=== PATIENT | male | born 1965 | race African-American/Black ===

== ENCOUNTER → 2017-09-08 | Day surgery (SDC) | payer OTHER ==
[~2017-09-08] VITALS: Ht 177.8 cm; Wt 80.7 kg
[~2017-09-08] MED LIST: ASPI1TAB PO; ATOR1TAB21 PO; LIDOCAINE 2% INJ 100 MG/5 ML SDV (FOR ANES.) As Ordered ONE; MULT1TAB10 PO; NS 1,000 ML IV ONE; PROPOFOL 200 MG/20 ML VIAL As Ordered ONE
--- NOTE | 2017-09-08 11:37 | ROOR ---
Patient Name: Michael Bustos Procedure Date: 09/08/2017 11:21 AM Date of : 1965 Age: 52 Room: [facility] Gender: Male Note Status: Finalized Procedure: Colonoscopy Indications: Screening for colorectal malignant neoplasm Providers: Bubba Song Jr, MD Referring MD: Jaycee Salgado DO Requesting Provider: Medicines: Propofol per Anesthesia Complications: No immediate complications. Procedure: Pre-Anesthesia Assessment: - Prior to the procedure, a History and Physical was performed, and patient medications and allergies were reviewed. The patient is competent. The risks and benefits of the procedure and the sedation options and risks were discussed with the patient. All questions were answered and informed consent was obtained. Patient identification and proposed procedure were verified by the physician and the nurse in the pre-procedure area and in the procedure room. Mental Status Examination: alert and oriented. Airway Examination: normal oropharyngeal airway and neck mobility. Respiratory Examination: clear to auscultation. CV Examination: normal. ASA Grade Assessment: II - A patient with mild systemic disease. After reviewing the risks and benefits, the patient was deemed in satisfactory condition to undergo the procedure. The anesthesia plan was to use moderate sedation / analgesia (conscious sedation). Immediately prior to administration of medications, the patient was re-assessed for adequacy to receive sedatives. The heart rate, respiratory rate, oxygen saturations, blood pressure, adequacy of pulmonary ventilation, and response to care were monitored throughout the procedure. The physical status of the patient was re-assessed after the procedure. The Colonoscope was introduced through the anus and advanced to the cecum, identified by appendiceal orifice and ileocecal valve. The colonoscopy was performed without difficulty. The patient tolerated the procedure well. The quality of the bowel preparation was adequate and good. Findings: The rectum, recto-sigmoid colon, sigmoid colon, descending colon, transverse colon, ascending colon, cecum, appendiceal orifice and ileocecal valve appeared normal. Impression: - The rectum, recto-sigmoid colon, sigmoid colon, descending colon, transverse colon, ascending colon, cecum, appendiceal orifice and ileocecal valve are normal. - No specimens collected. Recommendation: - Discharge patient to home (ambulatory). - Repeat colonoscopy in 10 years for screening purposes. Bubba Song MD Bubba Song Jr, MD 09/08/2017 11:36:51 AM This report has been signed electronically. Number of Addenda: 0 Note Initiated On: 09/08/2017 11:21 AM Estimated Blood Loss: Estimated blood loss: none.
[2017-09-08 12:02] VITALS: BP 129/74
== END | disposition home or self-care (01) ==
LOC: M OPP 09:57
PROVIDERS: ATTEND Surgery
DX: Z12.11 Encounter for screening for malignant neoplasm of colon (principal); E78.5 Hyperlipidemia, unspecified; E11.9 Type 2 diabetes mellitus without complications; F17.210 Nicotine dependence, cigarettes, uncomplicated; Z79.82 Long term (current) use of aspirin; Z79.899 Other long term (current) drug therapy

== ENCOUNTER → 2020-09-05 | Outpatient (CLI) | payer OTHER ==
[~2020-09-05] MED LIST changes: -ASPI1TAB PO; +ASPI81TA26 PO; -LIDOCAINE 2% INJ 100 MG/5 ML SDV (FOR ANES.) As Ordered ONE; -NS 1,000 ML IV ONE; -PROPOFOL 200 MG/20 ML VIAL As Ordered ONE
[2020-09-05 10:16] LABS: BASO % 0.5 % (0.0-1.0); EOS # 0.1 10^3/uL (0.0-0.5); EOS % 1.2 % (0.0-3.0); HEMATOCRIT 47.1 % (42.0-52.0); HEMOGLOBIN 14.3 g/dl (13.5-17.5); LYMPH # 1.6 10^3/uL (1.5-5.0); LYMPH % 27.4 % (24.0-44.0); MEAN CORPUSCULAR HEMOGLOBIN 25.1 pg (27.0-33.0); MEAN CORPUSCULAR HGB CONC 30.4 g/dl (32.0-36.5); MEAN CORPUSCULAR VOLUME 82.6 fl (80.0-96.0); MONO # 0.5 10^3/uL (0.0-0.8); MONO % 8.9 % (0.0-5.0); NEUTROPHILS # 3.5 10^3/uL (1.5-8.5); NEUTROPHILS % 61.8 % (36.0-66.0); PLATELET COUNT, AUTOMATED 232 10^3/uL (150-450); WHITE BLOOD COUNT 5.7 10^3/uL (4.0-10.0)
[2020-09-05 10:43] LABS: ALBUMIN 3.7 GM/DL (3.2-5.2); ALT/SGPT 37 U/L (12-78); BILIRUBIN,TOTAL 0.6 MG/DL (0.2-1.0); BLOOD UREA NITROGEN 15 MG/DL (7-18); CALCIUM LEVEL 8.5 MG/DL (8.5-10.1); CARBON DIOXIDE LEVEL 28 MEQ/L (21-32); CHLORIDE LEVEL 104 MEQ/L (98-107); CHOLESTEROL LEVEL 180 MG/DL (<200); CHOLESTEROL RISK RATIO 4.186 (<5); CREATININE FOR GFR 1.07 MG/DL (0.70-1.30); GLOMERULAR FILTRATION RATE > 60.0 (>56); GLUCOSE, FASTING 99 MG/DL (70-100); HDL CHOLESTEROL 43 MG/DL (>40); LDL CHOLESTEROL 122 MG/DL (<100); NON-HDL-C 137 MG/DL; POTASSIUM SERUM 4.2 MEQ/L (3.5-5.1); SODIUM LEVEL 139 MEQ/L (136-145); TOTAL PROTEIN 7.4 GM/DL (6.4-8.2); TRIGLYCERIDES LEVEL 74 MG/DL (<150)
== END ==
LOC: M LAB 09:28
PROVIDERS: ATTEND Family Medicine
DX: E78.49 Other hyperlipidemia (principal); Z87.891 Personal history of nicotine dependence; E11.9 Type 2 diabetes mellitus without complications

== ENCOUNTER 2020-12-04 12:46 | Emergency (ER) | payer OTHER ==
[~2020-12-04] VITALS: Ht 175.3 cm; Wt 85.0 kg
[2020-12-04 12:47] VITALS: BP 131/70
[2020-12-04] MEDS ORDERED: GABA-1171 (12:52)
[2020-12-04] MEDS ORDERED: NAPR-837 PO (13:49)
== END 2020-12-04 13:56 | disposition home or self-care (01) ==
LOC: M ED 12:46
DX: S46.001A Unspecified injury of muscle(s) and tendon(s) of the rotator cuff of right shoulder, initial encounter (principal); X50.0XXA Overexertion from strenuous movement or load, initial encounter; Y92.9 Unspecified place or not applicable; Y93.9 Activity, unspecified; Y99.0 Civilian activity done for income or pay; Z79.899 Other long term (current) drug therapy

== ENCOUNTER → 2020-12-11 | Outpatient (CLI) | payer OTHER ==
[~2020-12-11] MED LIST changes: +GABA-1171; +NAPR-837 PO
--- NOTE | 2020-12-11 16:55 | REP ---
INDICATION: RIGHT SHOULDER PAIN. COMPARISON: None. TECHNIQUE: Four views of the right shoulder are provided. FINDINGS: There is mild osteoarthritic spurring at the AC joint. Right glenohumeral articulation is normally aligned. Mild inferior articular spurring is seen at the glenoid consistent with osteoarthritis. No erosive changes seen. No fracture is seen. IMPRESSION: Glenohumeral and acromioclavicular joint osteoarthritic spurring. No acute abnormality. <Electronically signed by Randy Mera > 12/11/20 [id number]
== END ==
LOC: M SOG 15:00
PROVIDERS: ATTEND Orthopaedic Surgery Sports Medicine
DX: S43.431A Superior glenoid labrum lesion of right shoulder, initial encounter (principal)

== ENCOUNTER 2021-01-14 15:15 | Outpatient (RCR) | payer OTHER | END 2021-01-16 | LOC: M PT 15:15 | PROVIDERS: ATTEND Orthopaedic Surgery Sports Medicine | DX: S43.431D Superior glenoid labrum lesion of right shoulder, subsequent encounter (principal); X58.XXXD Exposure to other specified factors, subsequent encounter ==

== ENCOUNTER → 2021-01-28 | Outpatient (CLI) | payer OTHER ==
[~2021-01-28] MED LIST changes: +ISOVUE-300 61% 50ML VIAL As Ordered ONE; +PROHANCE 279.3MG/ML 5ML VIAL As Ordered ONE
--- NOTE | 2021-01-28 10:12 | REP ---
INDICATION: SUPERIOR GLENOID LABRUM LESION RIGHT SHOULDER. COMPARISON: Radiographs 12/11/2020. TECHNIQUE: Coronal oblique T1, T2 fat sat, sagittal oblique T2 fat sat, axial T2 fat sat, gradient echo. Post arthrogram T1 fat sat and T2 fat sat in multiple planes. FINDINGS: Rotator cuff: There are fairly extensive partial undersurface tears of the supraspinatus tendon with no definite full-thickness tear. There is a 7 mm cyst it within the distal posterior tendon. There is mild tendinopathy/tendinitis of the subscapularis tendon. Acromioclavicular joint: There are moderate hypertrophic degenerative changes of the acromioclavicular joint. Acromion: Type 2 Biceps Tendon: In bicipital groove, with mild surrounding fluid. Hill-Sachs deformity: None. Deltoid muscle: No abnormal signal. Biceps labral complex: The biceps labral complex is partially torn. Labrum: There is a diffuse complex SLAP tear. Cartilage: There is focal moderate chondromalacia of the inferior glenoid. Bone marrow: There is mild subchondral marrow edema in the inferior glenoid. There is mild subchondral marrow edema in the acromion. Joint fluid: There is a small joint effusion. IMPRESSION: Extensive partial undersurface tears of supraspinatus tendon with no definite full-thickness tear. There is a 7 mm cyst within the distal posterior tendon. Mild tendinopathy/tendinitis of the subscapularis tendon. Moderate hypertrophic degenerative changes acromioclavicular joint with a type 2 acromion. Partial tear biceps labral complex with a diffuse complex SLAP tear. Focal moderate chondromalacia inferior glenoid with subchondral marrow edema. <Electronically signed by Stone Venegas > 01/28/21 [id number]
--- NOTE | 2021-01-28 20:23 | REP ---
INDICATION: SUPERIOR GLENOID LABRUM LESION RIGHT SHOULDER COMPARISON: None. TECHNIQUE: The procedure was performed under the direct supervision of Dr. Venegas. The benefits and risks including but not limited to pain, infection, bleeding and anaphylaxis were explained to the patient and informed consent was obtained. The right glenohumeral joint space was localized using fluoroscopic guidance. The skin was prepped and draped in a sterile fashion. 1% lidocaine was used as a local anesthetic. Using fluoroscopic guidance a 22 gauge spinal needle was inserted and advanced into the joint. 0.5 ml of Isovue-300 was injected to verify placement. 11 ml of a solution containing 20 ml of sterile saline and 0.15 ml of ProHance was injected into the joint. The needle was removed and the patient was taken to MRI for postprocedural imaging. The patient tolerated the procedure well and there were no immediate complications. Less than 6 seconds of fluoro time was utilized for this procedure. FINDINGS: None IMPRESSION: Fluoro guidance for right shoulder MRI arthrogram <Electronically signed by Morgan Britton > 01/28/21 [id number] <Electronically signed by Stone Venegas > 01/28/[id number]
== END ==
LOC: M RADPRO 06:28
PROVIDERS: ATTEND Orthopaedic Surgery Sports Medicine
DX: S43.431A Superior glenoid labrum lesion of right shoulder, initial encounter (principal); X58.XXXA Exposure to other specified factors, initial encounter; Y92.89 Other specified places as the place of occurrence of the external cause; Y93.89 Activity, other specified; Y99.8 Other external cause status; M94.211 Chondromalacia, right shoulder; M19.011 Primary osteoarthritis, right shoulder
CPT/HCPCS: 23350; 73223; 77002; A9576; Q9967

== ENCOUNTER → 2021-02-11 | Outpatient (CLI) | payer OTHER ==
[~2021-02-11] MED LIST changes: -ISOVUE-300 61% 50ML VIAL As Ordered ONE; -PROHANCE 279.3MG/ML 5ML VIAL As Ordered ONE
[2021-02-11 15:53] LABS: BASO % 0.5 % (0.0-1.0); EOS % 0.3 % (0.0-3.0); HEMOGLOBIN 14.4 g/dl (13.5-17.5); LYMPH % 31.9 % (24.0-44.0); MEAN CORPUSCULAR HEMOGLOBIN 26.1 pg (27.0-33.0); MEAN CORPUSCULAR VOLUME 81.7 fl (80.0-96.0); MONO # 0.6 10^3/uL (0.0-0.8); MONO % 9.4 % (2.0-8.0); NEUTROPHILS # 3.6 10^3/uL (1.5-8.5); NEUTROPHILS % 57.7 % (36.0-66.0); PLATELET COUNT, AUTOMATED 217 10^3/uL (150-450); RED BLOOD COUNT 5.51 10^6/uL (4.30-6.10); WHITE BLOOD COUNT 6.3 10^3/uL (4.0-10.0)
[2021-02-11 16:19] LABS: BLOOD UREA NITROGEN 12 MG/DL (7-18); CALCIUM LEVEL 9.3 MG/DL (8.5-10.1); CARBON DIOXIDE LEVEL 29 MEQ/L (21-32); CHLORIDE LEVEL 106 MEQ/L (98-107); CREATININE FOR GFR 1.05 MG/DL (0.70-1.30); GLOMERULAR FILTRATION RATE > 60.0 (>56); GLUCOSE, FASTING 94 MG/DL (70-100); POTASSIUM SERUM 3.7 MEQ/L (3.5-5.1); SODIUM LEVEL 140 MEQ/L (136-145)
[2021-02-11 18:05] LABS: HEMOGLOBIN A1c 7.6 %
== END ==
LOC: M LAB 15:28
PROVIDERS: ATTEND Family Medicine
DX: E11.9 Type 2 diabetes mellitus without complications (principal)

== ENCOUNTER 2021-02-13 14:30 | Outpatient (RCR) | payer OTHER | END 2021-02-16 | LOC: M PT 14:30 | PROVIDERS: ATTEND Orthopaedic Surgery Sports Medicine | DX: S43.431A Superior glenoid labrum lesion of right shoulder, initial encounter (principal) ==

== ENCOUNTER → 2021-03-18 | Outpatient (RCR) | payer OTHER | LOC: M PT 02-27 15:15 | PROVIDERS: ATTEND Orthopaedic Surgery Sports Medicine | DX: S43.431A Superior glenoid labrum lesion of right shoulder, initial encounter (principal); X58.XXXA Exposure to other specified factors, initial encounter; Y92.9 Unspecified place or not applicable ==

== ENCOUNTER 2021-04-17 14:30 | Outpatient (RCR) | payer OTHER | END 2021-04-18 | LOC: M PT 14:30 | PROVIDERS: ATTEND Orthopaedic Surgery Sports Medicine | DX: S43.431A Superior glenoid labrum lesion of right shoulder, initial encounter (principal) ==

== ENCOUNTER 2021-06-15 07:58 | Outpatient (RCR) | payer OTHER | END 2021-06-18 | LOC: M PT 07:58 | PROVIDERS: ATTEND Orthopaedic Surgery Sports Medicine | DX: S43.431A Superior glenoid labrum lesion of right shoulder, initial encounter (principal) ==

== ENCOUNTER → 2021-07-22 | Outpatient (CLI) | payer OTHER | LOC: M LAB 11:42 | PROVIDERS: ATTEND Family Medicine | DX: E11.9 Type 2 diabetes mellitus without complications (principal) ==

== ENCOUNTER 2021-10-14 08:00 | Outpatient (RCR) | payer OTHER | END 2021-10-19 | LOC: M PT 08:00 | PROVIDERS: ATTEND Orthopaedic Surgery Sports Medicine | DX: S43.431D Superior glenoid labrum lesion of right shoulder, subsequent encounter (principal); X58.XXXD Exposure to other specified factors, subsequent encounter ==

== ENCOUNTER → 2021-11-10 | Outpatient (CLI) | payer OTHER ==
[2021-11-10 11:59] LABS: HEMOGLOBIN A1c 7.2 %
== END ==
LOC: M LAB 10:11
PROVIDERS: ATTEND Family Medicine
DX: E11.9 Type 2 diabetes mellitus without complications (principal)

== ENCOUNTER 2021-11-12 08:00 | Outpatient (RCR) | payer OTHER | END 2021-11-16 | LOC: M PT 08:00 | PROVIDERS: ATTEND Orthopaedic Surgery Sports Medicine | DX: S43.431D Superior glenoid labrum lesion of right shoulder, subsequent encounter (principal) ==

== ENCOUNTER → 2021-12-17 | Outpatient (RCR) | payer OTHER | LOC: M PT 11-17 08:10 | PROVIDERS: ATTEND Orthopaedic Surgery Sports Medicine | DX: S43.431D Superior glenoid labrum lesion of right shoulder, subsequent encounter (principal) ==

== ENCOUNTER → 2021-12-22 | Outpatient (CLI) | payer OTHER | LOC: M SOG 09:31 | PROVIDERS: ATTEND Orthopaedic Surgery | DX: S43.431A Superior glenoid labrum lesion of right shoulder, initial encounter (principal); W18.30XA Fall on same level, unspecified, initial encounter; Y92.009 Unspecified place in unspecified non-institutional (private) residence as the place of occurrence of the external cause ==

== ENCOUNTER 2021-12-24 21:37 | Emergency (ER) | payer OTHER ==
[~2021-12-24] VITALS: Ht 175.3 cm; Wt 89.2 kg
[2021-12-24 21:38] VITALS: BP 138/78
== END 2021-12-25 00:22 | disposition home or self-care (01) ==
LOC: M ED 21:37
DX: U07.1 COVID-19 (principal); E78.5 Hyperlipidemia, unspecified

== ENCOUNTER → 2022-01-07 | Outpatient (CLI) | payer OTHER | LOC: M SOG 09:41 | PROVIDERS: ATTEND Orthopaedic Surgery | DX: M25.512 Pain in left shoulder (principal) ==

== ENCOUNTER 2022-01-12 08:40 | Outpatient (RCR) | payer OTHER | END 2022-01-16 | LOC: M PT 08:40 | PROVIDERS: ATTEND Orthopaedic Surgery Sports Medicine | DX: S43.431D Superior glenoid labrum lesion of right shoulder, subsequent encounter (principal) ==

== ENCOUNTER 2022-01-21 08:44 | Outpatient (RCR) | payer OTHER | END 2022-02-16 | LOC: M PT 08:44 | PROVIDERS: ATTEND Orthopaedic Surgery Sports Medicine | DX: S43.431D Superior glenoid labrum lesion of right shoulder, subsequent encounter (principal) ==

== ENCOUNTER → 2022-06-25 | Outpatient (CLI) | payer OTHER ==
[2022-06-25 19:18] LABS: HEMOGLOBIN A1c 6.9 %
== END ==
LOC: M LAB 17:23
PROVIDERS: ATTEND Family Medicine
DX: E11.9 Type 2 diabetes mellitus without complications (principal)

== ENCOUNTER → 2023-03-31 | Outpatient (CLI) | payer OTHER ==
[2023-03-31 08:33] LABS: BASO % 0.3 % (0.0-1.0); EOS % 0.5 % (0.0-3.0); HEMATOCRIT 45.7 % (42.0-52.0); HEMOGLOBIN 14.4 g/dl (13.5-17.5); LYMPH # 1.5 10^3/uL (1.5-5.0); LYMPH % 24.6 % (24.0-44.0); MEAN CORPUSCULAR HEMOGLOBIN 26.7 pg (27.0-33.0); MEAN CORPUSCULAR HGB CONC 31.5 g/dl (32.0-36.5); MEAN CORPUSCULAR VOLUME 84.6 fl (80.0-96.0); MONO # 0.6 10^3/uL (0.0-0.8); MONO % 8.8 % (2.0-8.0); NEUTROPHILS # 4.1 10^3/uL (1.5-8.5); NEUTROPHILS % 65.6 % (36.0-66.0); PLATELET COUNT, AUTOMATED 200 10^3/uL (150-450); WHITE BLOOD COUNT 6.3 10^3/uL (4.0-10.0)
[2023-03-31 08:52] LABS: CREATININE, URINE 203.4 MG/DL; MALB URINE SIEMENS < 3.0 MG/L; MAU/CREAT RATIO 1.4 MCG/MG (0.0-30.0)
[2023-03-31 08:53] LABS: ALBUMIN 3.6 G/DL (3.2-5.2); ALKALINE PHOSPHATASE 69 U/L (46-116); ALT/SGPT 26 U/L (7.0-40); AST/SGOT 17 U/L (<34); BILIRUBIN,TOTAL 0.7 MG/DL (0.3-1.2); BLOOD UREA NITROGEN 15 MG/DL (9-23); CALCIUM LEVEL 8.8 MG/DL (8.5-10.1); CARBON DIOXIDE LEVEL 30 MMOL/L (20-31); CHLORIDE LEVEL 105 MMOL/L (98-107); CHOLESTEROL LEVEL 245 MG/DL (<200); CREATININE FOR GFR 0.93 MG/DL (0.70-1.30); GLOMERULAR FILTRATION RATE > 60.0 (>56); GLUCOSE, FASTING 137 MG/DL (60-100); LDL CHOLESTEROL 161.2 MG/DL (<100); POTASSIUM SERUM 4.1 MMOL/L (3.5-5.1); SODIUM LEVEL 140 MMOL/L (136-145); TOTAL PROTEIN 6.6 G/DL (5.7-8.2); TRIGLYCERIDES LEVEL 174 MG/DL (<150)
[2023-03-31 08:58] LABS: HEMOGLOBIN A1c 7.5 % (4.0-6.0)
== END ==
LOC: M EKG 07:24
PROVIDERS: ATTEND Family Medicine
DX: Z00.00 Encounter for general adult medical examination without abnormal findings (principal); E11.9 Type 2 diabetes mellitus without complications; E78.49 Other hyperlipidemia; Z87.891 Personal history of nicotine dependence

== ENCOUNTER → 2023-05-12 | Outpatient (CLI) | payer OTHER | LOC: M RAD 16:16 | PROVIDERS: ATTEND Family Medicine | DX: Z12.2 Encounter for screening for malignant neoplasm of respiratory organs (principal); Z87.891 Personal history of nicotine dependence ==

== ENCOUNTER → 2023-09-26 | Outpatient (CLI) | payer OTHER ==
[2023-09-26 15:20] LABS: HEMOGLOBIN A1c 7.4 % (4.0-6.0)
== END ==
LOC: M LAB 14:12
PROVIDERS: ATTEND Family Medicine
DX: E11.9 Type 2 diabetes mellitus without complications (principal)

== ENCOUNTER → 2024-03-19 | Outpatient (CLI) | payer OTHER ==
[2024-03-19 16:47] LABS: HEMOGLOBIN A1c 8.2 % (4.0-6.0)
== END ==
LOC: M LAB 14:03
PROVIDERS: ATTEND Family Medicine
DX: E11.9 Type 2 diabetes mellitus without complications (principal)

== ENCOUNTER → 2024-06-12 | Outpatient (CLI) | payer OTHER ==
[2024-06-12 11:25] LABS: BASO % 0.5 % (0.0-1.0); EOS % 0.7 % (0.0-3.0); HEMATOCRIT 44.7 % (42.0-52.0); HEMOGLOBIN 14.7 g/dl (13.5-17.5); LYMPH # 1.6 10^3/uL (1.5-5.0); LYMPH % 27.4 % (24.0-44.0); MEAN CORPUSCULAR HEMOGLOBIN 27.2 pg (27.0-33.0); MEAN CORPUSCULAR HGB CONC 32.9 g/dl (32.0-36.5); MEAN CORPUSCULAR VOLUME 82.8 fl (80.0-96.0); MONO # 0.5 10^3/uL (0.0-0.8); MONO % 9.2 % (2.0-8.0); NEUTROPHILS # 3.6 10^3/uL (1.5-8.5); NEUTROPHILS % 61.9 % (36.0-66.0); PLATELET COUNT, AUTOMATED 203 10^3/uL (150-450); WHITE BLOOD COUNT 5.8 10^3/uL (4.0-10.0)
[2024-06-12 11:50] LABS: ALBUMIN 3.8 G/DL (3.2-5.2); ALKALINE PHOSPHATASE 92 U/L (46-116); ALT/SGPT 29 U/L (7.0-40); AST/SGOT 16 U/L (<34); BILIRUBIN,TOTAL 0.4 MG/DL (0.3-1.2); BLOOD UREA NITROGEN 13 MG/DL (9-23); CARBON DIOXIDE LEVEL 29 MMOL/L (20-31); CHLORIDE LEVEL 104 MMOL/L (98-107); CHOLESTEROL LEVEL 244 MG/DL (<200); CHOLESTEROL RISK RATIO 6.17 (<5); CREATININE FOR GFR 0.98 MG/DL (0.70-1.30); GLOMERULAR FILTRATION RATE > 60.0 (>49); GLUCOSE, FASTING 162 MG/DL (74-106); HDL CHOLESTEROL 39.5 MG/DL (>40); LDL CHOLESTEROL 146.9 MG/DL (<100); NON-HDL-C 204.5 MG/DL; POTASSIUM SERUM 4.1 MMOL/L (3.5-5.1); SODIUM LEVEL 135 MMOL/L (136-145); TOTAL PROTEIN 7.3 G/DL (5.7-8.2); TRIGLYCERIDES LEVEL 288 MG/DL (<150)
[2024-06-12 12:01] LABS: CREATININE, URINE 75.7 MG/DL; MALB URINE SIEMENS < 3.0 MG/L; MAU/CREAT RATIO 3.9 MCG/MG (0.0-30.0)
== END ==
LOC: M LAB 10:22
PROVIDERS: ATTEND Family Medicine
DX: R03.0 Elevated blood-pressure reading, without diagnosis of hypertension (principal); E78.49 Other hyperlipidemia; E11.65 Type 2 diabetes mellitus with hyperglycemia

== ENCOUNTER → 2024-09-09 | Outpatient (CLI) | payer OTHER | LOC: M RAD 13:19 | PROVIDERS: ATTEND Physician Assistant Medical | DX: J20.9 Acute bronchitis, unspecified (principal) ==

== ENCOUNTER → 2024-10-10 | Outpatient (CLI) | payer OTHER ==
[2024-10-10 12:19] LABS: BLOOD UREA NITROGEN 11 MG/DL (9-23); CALCIUM LEVEL 8.8 MG/DL (8.3-10.6); CARBON DIOXIDE LEVEL 26 MMOL/L (20-31); CHLORIDE LEVEL 109 MMOL/L (98-107); CREATININE FOR GFR 0.89 MG/DL (0.70-1.30); GLOMERULAR FILTRATION RATE > 60.0 (>49); GLUCOSE, FASTING 98 MG/DL (74-106); POTASSIUM SERUM 4.2 MMOL/L (3.5-5.1); SODIUM LEVEL 143 MMOL/L (136-145)
== END ==
LOC: M LAB 11:01
PROVIDERS: ATTEND Nurse Practitioner Family
DX: E11.65 Type 2 diabetes mellitus with hyperglycemia (principal)

== ENCOUNTER → 2024-11-29 | Outpatient (CLI) | payer OTHER ==
[2024-11-29 09:55] LABS: HEMOGLOBIN A1c 7.3 % (4.0-6.0)
== END ==
LOC: M LAB 09:16
PROVIDERS: ATTEND Family Medicine
DX: E11.9 Type 2 diabetes mellitus without complications (principal)

== ENCOUNTER → 2025-07-10 | Outpatient (REF) | payer OTHER | LOC: M LAB REF 11:55 | PROVIDERS: ATTEND Physician Assistant | DX: B34.9 Viral infection, unspecified (principal) ==

== ENCOUNTER → 2025-07-15 | Outpatient (CLI) | payer OTHER ==
[2025-07-15 10:39] LABS: BASO # 0.0 10^3/uL (0.0-0.2); BASO % 0.3 % (0.0-1.0); EOS # 0.1 10^3/uL (0.0-0.5); EOS % 0.9 % (0.0-3.0); LYMPH # 1.3 10^3/uL (1.5-5.0); LYMPH % 19.0 % (24.0-44.0); MONO # 0.7 10^3/uL (0.0-0.8); MONO % 11.2 % (2.0-8.0); NEUTROPHILS # 4.5 10^3/uL (1.5-8.5); NEUTROPHILS % 68.1 % (36.0-66.0); PLATELET COUNT, AUTOMATED 219 10^3/uL (150-450)
[2025-07-15 11:09] LABS: ALT/SGPT 57 U/L (7.0-40); AST/SGOT 39 U/L (<34); CALCIUM LEVEL 8.9 MG/DL (8.3-10.6); CARBON DIOXIDE LEVEL 31 MMOL/L (20-31); CHLORIDE LEVEL 102 MMOL/L (98-107); CHOLESTEROL LEVEL 152 MG/DL (<200); CHOLESTEROL RISK RATIO 5.15 (<5); CREATININE FOR GFR 0.87 MG/DL (0.70-1.30); GLOMERULAR FILTRATION RATE > 90.0 (>49); LDL CHOLESTEROL 79.9 MG/DL (<100); NON-HDL-C 122.5 MG/DL; POTASSIUM SERUM 4.4 MMOL/L (3.5-5.1); PSA SCREENING 0.58 NG/ML (< 4.00); SODIUM LEVEL 140 MMOL/L (136-145); TRIGLYCERIDES LEVEL 213 MG/DL (<150)
[2025-07-15 11:16] LABS: ESTIMATED AVERAGE GLUCOSE 192.0 MG/DL (60-110)
== END ==
LOC: M LAB 09:53
PROVIDERS: ATTEND Family Medicine
DX: Z00.00 Encounter for general adult medical examination without abnormal findings (principal); K92.1 Melena; M54.12 Radiculopathy, cervical region; Z87.891 Personal history of nicotine dependence; E78.49 Other hyperlipidemia; Z12.5 Encounter for screening for malignant neoplasm of prostate; E11.65 Type 2 diabetes mellitus with hyperglycemia